=== PATIENT | female | born 1945 | race Caucasian/White ===

== ENCOUNTER 2016-10-09 06:53 | Day surgery (SDC) | payer OTHER, MEDICARE ==
[2016-10-08 14:56] VITALS: BMI 30.7
[2016-10-09] MEDS ORDERED: LIDOCAINE HCL/PF 1% SDV 5ML VIAL ONE (07:27)
[2016-10-09] MEDS ORDERED: PROPOFOL 20 ML ONE ×3 (07:27)
[2016-10-09 08:07] VITALS: TEMP 97.5
[2016-10-09 09:26] VITALS: BP 122/70; PULSE 74
--- NOTE | 2016-10-10 13:24 | PATH ---
Surgical Pathology Report Patient Name: LEELEE JAY [facility]. Rec. #: [id number] /Age/Gender: 1945 (Age: 70) / F Account: [id number] Location: U-ENDOSCOPY Taken: 10/09/2016 Received: 10/09/2016 Reported: 10/10/2016 Physicians: Soren Macedo M.D. Specimen(s) Received A: BX POLYP SPLENIC FLEXURE B: BX POLYP SIGMOID COLON Clinical History Abnormal CT scan Colon polyp, diverticulosis Final Diagnosis A. COLON, SPLENIC FLEXURE, POLYP BIOPSY: TUBULAR ADENOMA. SEPARATE INFLAMMATORY-TYPE POLYP. B. COLON, SIGMOID, POLYP, BIOPSY: FRAGMENTS OF HYPERPLASTIC POLYP. Electronically Signed Jakub Clay M.D. Gross Description A. Received in formalin, labeled "polyps splenic flexure" are 2 padilla, irregular portions of soft tissue measuring 0.1 and 0.2 cm in greatest dimension. The specimens are submitted in toto in one cassette. B. Received in formalin, labeled "biopsy polyp sigmoid colon" are 3 padilla, irregular portions of soft tissue averaging 0.3 cm in greatest dimension. The specimens are submitted in toto in one cassette. 10/09/201610/09/2016
== END 2016-10-09 09:30 | disposition home or self-care (01) ==
LOC: JASU-ENDO 06:53
PROVIDERS: ATTEND Internal Medicine Gastroenterology
PROC: 0DBE8ZX Excision of Large Intestine, Via Natural or Artificial Opening Endoscopic, Diagnostic (ICD-10-PCS; principal; 2016-10-09 07:30)
DX: Z12.11 Encounter for screening for malignant neoplasm of colon (principal); D12.5 Benign neoplasm of sigmoid colon; K63.5 Polyp of colon; K57.30 Diverticulosis of large intestine without perforation or abscess without bleeding; K63.89 Other specified diseases of intestine
CPT/HCPCS: 88305-TC

== ENCOUNTER 2022-10-11 16:00 | Inpatient (IN) | payer OTHER, MEDICARE ==
[2022-10-11 16:18] VITALS: BMI 30.9
[2022-10-11] MEDS ORDERED: ONDANSETRON 4 MG/2 ML VIAL IVPUSH ONE ×2 (17:38→22:21)
[2022-10-11] MEDS ORDERED: SODIUM CHLORIDE 0.9% 500 ML INFUS.BAG IV ONE (17:38)
[2022-10-11] MEDS ORDERED: ACETAMINOPHEN 1000 MG/100 ML BAG IVPB ONE (17:38)
[2022-10-11] MEDS ORDERED: ONDANSETRON 4 MG/2 ML VIAL ONE ×2 (17:52→23:02)
[2022-10-11] MEDS ORDERED: ACETAMINOPHEN INJECTION 100 ML IVPB ONE (17:52)
[2022-10-11] MEDS ORDERED: MAG HYDROX/AL HYDROX/SIMETH 30 ML UNIT-DOSE CUP PO ONE (17:53)
[2022-10-11 19:08] LABS: BASO % 0.2 % (0-2.0); HEMATOCRIT 49.3 % (32.4-45.2); HEMOGLOBIN 16.6 GM/dL (10.7-15.3); LYMPH % 3.6 % (8-40); MCH 29.4 pg (25.7-33.7); MCHC 33.6 g/dl (32.0-36.0); MEAN CELL VOLUME 87.6 fl (80-96); MEAN PLT VOLUME 9.3 fl (7.5-11.1); MONO % 2.5 % (3.8-10.2); NEUT % 93.7 % (42.8-82.8); PLATELET COUNT 146 10^3/uL (134-434); RBC 5.63 M/mm3 (3.60-5.2); RDW 14.2 % (11.6-15.6); WHITE BLOOD COUNT 5.9 K/mm3 (4.0-10.0)
[2022-10-11 21:18] LABS: ALBUMIN 4.2 g/dl (3.4-5.0); CALCIUM 9.9 mg/dL (8.5-10.1)
[2022-10-11 21:19] LABS: BLOOD UREA NITROGEN 22.9 mg/dL (7-18)
[2022-10-11 21:22] LABS: CREATININE 0.8 mg/dL (0.55-1.3)
[2022-10-11 21:23] LABS: TOT PROT 8.2 g/dl (6.4-8.2)
[2022-10-11 21:24] LABS: BILIRUBIN,TOTAL 1.2 mg/dL (0.2-1)
[2022-10-11 21:58] LABS: PH,URINE 5.5 (5.0-8.0); URINE APPEARANCE CLEAR; URINE BILIRUBIN NEGATIVE (NEGATIVE); URINE COLOR DK YELLOW; URINE GLUCOSE (UA) NEGATIVE (NEGATIVE); URINE KETONE TRACE (NEGATIVE); URINE LEUK ESTERASE NEGATIVE (NEGATIVE); URINE NITRITE NEGATIVE (NEGATIVE); URINE PROTEIN NEGATIVE (NEGATIVE); URINE UROBILINOGEN 0.2 mg/dL (0.2-1.0)
[2022-10-11] MEDS ORDERED: METOCLOPRAMIDE HCL INJECTION 10 MG/2 ML VIAL IVPB ONE (22:29)
[2022-10-11] MEDS ORDERED: FAMOTIDINE 20 MG/50 ML IVPB 20 MG/50 ML MG IVPB ONE ×2 (22:29→23:03)
[2022-10-11] MEDS ORDERED: METOCLOPRAMIDE HCL INJECTION 10 MG/2 ML VIAL ONE (23:02)
[2022-10-12] MEDS ORDERED: ONDANSETRON 4 MG/2 ML VIAL IVPB PRN (01:33)
[2022-10-12] MEDS ORDERED: ACETAMINOPHEN 325 MG TABLET (FP) PO PRN (01:34)
[2022-10-12] MEDS ORDERED: SODIUM CHLORIDE 1,000 ML IV SCH (01:45)
[2022-10-12 08:33] LABS: BASO % 0.4 % (0-2.0); EOS % 0.5 % (0-4.5); HEMATOCRIT 40.7 % (32.4-45.2); HEMOGLOBIN 13.8 GM/dL (10.7-15.3); LYMPH % 19.1 % (8-40); MCH 29.7 pg (25.7-33.7); MCHC 33.8 g/dl (32.0-36.0); MEAN CELL VOLUME 87.8 fl (80-96); MEAN PLT VOLUME 9.3 fl (7.5-11.1); MONO % 6.7 % (3.8-10.2); NEUT % 73.3 % (42.8-82.8); PLATELET COUNT 126 10^3/uL (134-434); RBC 4.64 M/mm3 (3.60-5.2); WHITE BLOOD COUNT 2.8 K/mm3 (4.0-10.0)
[2022-10-12 08:36] LABS: BLOOD UREA NITROGEN 23.8 mg/dL (7-18); CALCIUM 8.7 mg/dL (8.5-10.1)
[2022-10-12 08:39] LABS: CREATININE 0.8 mg/dL (0.55-1.3)
[2022-10-12 08:41] LABS: BILIRUBIN,TOTAL 1.2 mg/dL (0.2-1)
[2022-10-12 08:42] LABS: ALBUMIN 3.1 g/dl (3.4-5.0); TOT PROT 6.1 g/dl (6.4-8.2)
[2022-10-12] MEDS: TAMSULOSIN HCL 0.4 MG CAP PO SCH (10:44)
[2022-10-12] MEDS: BACLOFEN 10 MG TABLET (FP) PO SCH ×2 (10:44→21:44)
[2022-10-12] MEDS: HEPARIN NA (PORCINE) 5,000 UNITS/ML 1ML VIAL SQ SCH ×2 (10:44→21:46)
[2022-10-12] MEDS: LOSARTAN POTASSIUM 50 MG TABLET PO SCH (10:44)
[2022-10-12] MEDS: FAMOTIDINE 20 MG TABLET PO SCH (10:45)
[2022-10-12] MEDS: ACETAMINOPHEN 325 MG TABLET (FP) PO PRN (11:12)
[2022-10-12 17:40] LABS: BILIRUBIN,DIRECT 0.3 mg/dL (0.0-0.2)
[2022-10-13] MEDS: BACLOFEN 10 MG TABLET (FP) PO SCH ×2 (10:05→21:49)
[2022-10-13] MEDS: HEPARIN NA (PORCINE) 5,000 UNITS/ML 1ML VIAL SQ SCH ×2 (10:05→21:48)
[2022-10-13] MEDS: FAMOTIDINE 20 MG TABLET PO SCH (10:05)
[2022-10-13] MEDS: LOSARTAN POTASSIUM 50 MG TABLET PO SCH (10:05)
[2022-10-13] MEDS: TAMSULOSIN HCL 0.4 MG CAP PO SCH (10:05)
[2022-10-13] MEDS: ACETAMINOPHEN 325 MG TABLET (FP) PO PRN (21:50)
[2022-10-14 07:36] LABS: BASO % 0.6 % (0-2.0); EOS % 2.4 % (0-4.5); HEMATOCRIT 39.5 % (32.4-45.2); HEMOGLOBIN 13.6 GM/dL (10.7-15.3); LYMPH % 33.1 % (8-40); MCH 30.4 pg (25.7-33.7); MCHC 34.4 g/dl (32.0-36.0); MEAN CELL VOLUME 88.5 fl (80-96); MEAN PLT VOLUME 9.2 fl (7.5-11.1); MONO % 10.4 % (3.8-10.2); NEUT % 53.5 % (42.8-82.8); PLATELET COUNT 136 10^3/uL (134-434); RBC 4.47 M/mm3 (3.60-5.2); RDW 14.5 % (11.6-15.6); WHITE BLOOD COUNT 3.7 K/mm3 (4.0-10.0)
[2022-10-14 08:00] LABS: CALCIUM 8.8 mg/dL (8.5-10.1)
[2022-10-14 08:01] LABS: ALBUMIN 3.3 g/dl (3.4-5.0); BLOOD UREA NITROGEN 16.9 mg/dL (7-18)
[2022-10-14 08:04] LABS: CREATININE 0.8 mg/dL (0.55-1.3)
[2022-10-14 08:05] LABS: BILIRUBIN,TOTAL 0.6 mg/dL (0.2-1); TOT PROT 6.4 g/dl (6.4-8.2)
[2022-10-14] MEDS: TAMSULOSIN HCL 0.4 MG CAP PO SCH (10:17)
[2022-10-14] MEDS: BACLOFEN 10 MG TABLET (FP) PO SCH ×2 (10:17→21:15)
[2022-10-14] MEDS: FAMOTIDINE 20 MG TABLET PO SCH (10:17)
[2022-10-14] MEDS: LOSARTAN POTASSIUM 50 MG TABLET PO SCH (10:17)
[2022-10-14] MEDS: HEPARIN NA (PORCINE) 5,000 UNITS/ML 1ML VIAL SQ SCH ×2 (10:18→21:15)
[2022-10-14] MEDS: POTASSIUM CHLORIDE TABS 20 MEQ TABLET.ER (FP) PO SCH (14:21)
[2022-10-14 22:12] VITALS: RESP 20
[2022-10-15 09:56] VITALS: BP 136/88; PULSE 79; TEMP 97.4
[2022-10-15] MEDS: BACLOFEN 10 MG TABLET (FP) PO SCH (09:56)
[2022-10-15] MEDS: LOSARTAN POTASSIUM 50 MG TABLET PO SCH (09:56)
[2022-10-15] MEDS: POTASSIUM CHLORIDE TABS 20 MEQ TABLET.ER (FP) PO SCH (09:56)
[2022-10-15] MEDS: FAMOTIDINE 20 MG TABLET PO SCH (09:56)
[2022-10-15] MEDS: TAMSULOSIN HCL 0.4 MG CAP PO SCH (09:56)
[2022-10-15] MEDS: HEPARIN NA (PORCINE) 5,000 UNITS/ML 1ML VIAL SQ SCH (09:57)
== END 2022-10-15 13:26 | disposition home or self-care (01) | DRG 392 ==
LOC: JER 16:00 → JERBED 23:15 → J4W 10-12 02:51 → OBSVTOIN 10-15 11:14
PROVIDERS: ADMIT Internal Medicine; ATTEND Internal Medicine
DX: A09 Infectious gastroenteritis and colitis, unspecified (principal); K76.0 Fatty (change of) liver, not elsewhere classified; G35 Multiple sclerosis; R10.9 Unspecified abdominal pain; R10.32 Left lower quadrant pain; I10 Essential (primary) hypertension; E78.5 Hyperlipidemia, unspecified; K57.90 Diverticulosis of intestine, part unspecified, without perforation or abscess without bleeding; K44.9 Diaphragmatic hernia without obstruction or gangrene; L68.0 Hirsutism; M62.838 Other muscle spasm; K64.8 Other hemorrhoids; R07.89 Other chest pain; I08.0 Rheumatic disorders of both mitral and aortic valves; F41.9 Anxiety disorder, unspecified; E66.9 Obesity, unspecified; Z68.30 Body mass index [BMI] 30.0-30.9, adult; Z86.010 Personal history of colon polyps
CPT/HCPCS: 0241U-QW; 36415; 71046-TC-FY; 74177-TC; 80053; 81003; 82157; 82248; 82533; 82550; 83605; 83690; 84484; 85025; 86140; 87040; 87086; 93005; 93010; 93306-TC; 99285-25; G0378; J0475; J1644; Q9967

== ENCOUNTER 2024-10-29 20:50 | Emergency (ER) | payer OTHER, MEDICARE ==
[2024-10-29 21:01] VITALS: BP 145/73; PULSE 93; RESP 18; TEMP 99.8; BMI 32.9
[2024-10-29] MEDS ORDERED: ACETYLCYSTEINE 20% 200MG/ML 4 ML VIAL *FOR ORAL / INH USE ONLY ONE (21:40)
[2024-10-29] MEDS ORDERED: ALBUTEROL SO4 0.083% IH SOL 2.5 MG/3 ML VIAL.NEB. NEB ONE (21:40)
[2024-10-29] MEDS ORDERED: ACETAMINOPHEN 325 MG TABLET (FP) ONE (21:40)
[2024-10-29] MEDS ORDERED: DEXAMETHASONE SOD PHOSPHATE 10 MG/1 ML VIAL ONE (21:51)
[2024-10-29] MEDS: DEXAMETHASONE LIQUID 0.5 MG/5 ML PO ONE (21:58)
[2024-10-29] MEDS: ACETYLCYSTEINE 20% 200MG/ML 30 ML VIAL *FOR ORAL / INH USE ONLY NEB ONE (21:59)
[2024-10-29] MEDS: ACETAMINOPHEN 325 MG TABLET (FP) PO ONE (21:59)
[2024-10-29] MEDS: ALBUTEROL SO4 0.083% IH SOL 2.5 MG/3 ML VIAL.NEB. NEB ONE (22:14)
[2024-10-29] MEDS: OXYMETAZOLINE 0.05% NASAL SOLUTION 15 ML BOTTLE NS ONE (22:41)
[2024-10-29] MEDS ORDERED: guaiFENesin 200 MG/10 ML 10 ML UNIT-DOSE CUPS ONE (23:46)
[2024-10-29] MEDS: guaiFENesin 200 MG/10 ML 10 ML UNIT-DOSE CUPS PO ONE (23:47)
[2024-10-30] MEDS ORDERED: ALBUTEROL SO4 0.083% IH SOL 2.5 MG/3 ML VIAL.NEB. NEB ONE (21:33)
== END 2024-10-30 01:10 | disposition home or self-care (01) ==
LOC: JER 20:50
PROC: 3E0F7GC Introduction of Other Therapeutic Substance into Respiratory Tract, Via Natural or Artificial Opening (ICD-10-PCS; principal; 2024-10-29)
DX: U07.1 COVID-19 (principal); R09.81 Nasal congestion; R07.89 Other chest pain; J34.3 Hypertrophy of nasal turbinates; R05.9 Cough, unspecified
CPT/HCPCS: 0241U-QW; 71045-TC-FY; 93005; 93010; 99285-25